=== PATIENT | male | born 1960 | race Hispanic/Latino ===

== ENCOUNTER → 2019-12-23 | Outpatient (CLI) | payer OTHER ==
--- NOTE | 2019-12-23 13:10 | Diagnostic Imaging Report ---
EXAMINATION: TOES RIGHT MIN 2 VIEWS INDICATION: Trauma COMPARISON: None FINDINGS: Small mildly displaced fracture of the medial base of first proximal phalanx with intra-articular extension. Mild overlying soft tissue swelling. No additional fracture identified. IMPRESSION: Mildly displaced medial base of first proximal phalanx fracture. Signed by: Daniel Argueta MD on 12/23/2019 1:06 PM
== END ==
LOC: RAD 12:18
PROVIDERS: ATTEND Family Medicine
DX: M79.674 Pain in right toe(s) (principal)